=== PATIENT | female | born 1970 | race Caucasian/White ===

== ENCOUNTER 2016-11-05 14:10 | Emergency (ER) | payer BC ==
[2016-11-05] MEDS ORDERED: Aspirin 81 MG Tab.Chew ONE (14:28)
[2016-11-05] MEDS ORDERED: Nitroglycerin 0.4 MG Tab.SL ONE (14:28)
[2016-11-05] MEDS ORDERED: Aspirin 81 MG Tab.Chew PO SCH (14:30)
[2016-11-05] MEDS ORDERED: Nitroglycerin 0.4 MG Tab.SL SL ONE ×2 (14:30→14:51)
[2016-11-05] MEDS ORDERED: Sodium Chloride 0.9% 10 ML Syringe FLUSH PRN (14:51)
[2016-11-05 18:03] VITALS: BP 112/73
--- NOTE | 2016-11-05 18:41 | EDM.PDOC ---
ED HPI GENERAL MEDICAL PROBLEM - General Chief Complaint: Chest Pain Stated Complaint: FAST HEART RATE Time Seen by Provider: 11/05/16 14:49 Source of Information: Reports: Patient History Limitations: Reports: No Limitations - History of Present Illness INITIAL COMMENTS - FREE TEXT/NARRATIVE: This patient comes in with complaints of chest pain. It's been going on about an hour and a half. Described as a pain and pressure sensation. She also complained of a racing heart. She's had nausea on and off for the last couple of days. She has a history of reflux but had a Reagan procedure a couple of years ago which seemed to take care of that. She hasn't tried any antacids. Chest Pain Score (Numeric/FACES): 4 - Related Data Allergies Allergy/AdvReac Type Severity Reaction Status Date / Time morphine Allergy itch Uncoded 03/30/15 07:58 Home Meds: Home Meds Acetaminophen [Tylenol Jr. [place]] 640 mg PO Q4H PRN #100 tab.dis 03/27/15 [ Rx] Magnesium Hydroxide [Milk of Magnesia] 30 ml PO DAILY PRN #2 ml 03/27/15 [Rx] Ondansetron [Zofran ODT] 4 mg PO Q6H PRN #30 tab.dis 03/27/15 [Rx] Past Medical History - Past Health History Medical/Surgical History: Denies Medical/Surgical History Other Gastrointestinal History: lap niseen [employer] History: Reports: - Past Surgical History Female Surgical History: Reports: Section Social & Family History - Tobacco Use Smoking Status *Q: Never Smoker Second Hand Smoke Exposure: No - Caffeine Use Caffeine Use: Reports: None - Alcohol Use Days Per Week of Alcohol Use: 2 Number of Drinks Per Day: 1 Total Drinks Per Week: 2 - Recreational Drug Use Recreational Drug Use: No ED ROS GENERAL - Review of Systems Review Of Systems: ROS reveals no pertinent complaints other than HPI. ED EXAM, GENERAL - Physical Exam Exam: See Below Exam Limited By: No Limitations General Appearance: Alert, WD/WN, Mild Distress Eye Exam: Bilateral Eye: Normal Inspection Throat/Mouth: Normal Oropharynx Respiratory/Chest: Lungs Clear, Chest Non-Tender Cardiovascular: Normal Peripheral Pulses, Regular Rate, Rhythm GI/Abdominal: Soft, Non-Tender Extremities: Normal Inspection Neurological: Alert, Oriented Psychiatric: Normal Affect Skin Exam: Warm, Dry Course - Vital Signs Last Recorded V/S: Last Vital Signs Temp 37.1 C 11/05/16 14:33 Pulse 66 11/05/16 18:02 Resp 18 11/05/16 18:02 BP 112/73 11/05/16 18:02 Pulse Ox 99 11/05/16 18:02 - Orders/Labs/Meds Orders: Active Orders 24 hr Category Date Time Status EKG Documentation Completion [RC] ASDIRECTED Care 11/05/16 14:51 Active EKG Documentation Completion [RC] ASDIRECTED Care 11/05/16 16:46 Active Chest 1V Frontal [CR] Urgent Exams 11/05/16 14:50 Taken Aspirin Med 11/05/16 14:30 Active 324 mg PO BEDTIME Sodium Chloride 0.9% [Saline Flush] Med 11/05/16 14:51 Active 10 ml FLUSH ASDIRECTED PRN Saline Lock Insert [OM.PC] Urgent Oth 11/05/16 14:50 Ordered EKG 12 Lead [EK] Urgent Ther 11/05/16 14:50 Ordered EKG 12 Lead [EK] Urgent Ther 11/05/16 16:46 Ordered Medication Orders Aspirin (Aspirin) 324 mg PO BEDTIME DEEPTHI Last Admin: 11/05/16 14:30 Dose: 324 mg Sodium Chloride (Saline Flush) 10 ml FLUSH ASDIRECTED PRN PRN Reason: Keep Vein Open Last Admin: 11/05/16 15:00 Dose: 10 ml Labs: Laboratory Tests 11/05/16 11/05/16 11/05/16 Range/Units 14:25 14:25 14:25 WBC 8.0 (4.5-11.0) K/uL RBC 4.21 (3.30-5.50) M/uL Hgb 14.2 (12.0-15.0) g/dL Hct 41.3 (36.0-48.0) % MCV 98 (80-98) fL MCH 34 H (27-31) pg MCHC 34 (32-36) % Plt Count 228 (150-400) K/uL Neut % (Auto) 73 H (36-66) % Lymph % (Auto) 18 L (24-44) % [place] % (Auto) 8 H (2-6) % Eos % (Auto) 1 L (2-4) % Baso % (Auto) 0 (0-1) % PT 10.3 (9.5-12.0) sec INR 0.96 (0.80-1.20) APTT 24.4 L (27.0-36.0) sec Sodium 138 L (140-148) mmol/L Potassium 3.9 (3.6-5.2) mmol/L Chloride 103 (100-108) mmol/L Carbon Dioxide 21 (21-32) mmol/L Anion Gap 17.9 H (5.0-14.0) mmol/L BUN 12 (7-18) mg/dL Creatinine 0.8 (0.6-1.0) mg/dL Est Cr Clr Drug Dosing 70.98 mL/min Estimated GFR (MDRD) > 60 (>60) Glucose 121 H (74-106) mg/dL Calcium 9.0 (8.5-10.1) mg/dL Total Bilirubin 0.9 D (0.2-1.0) mg/dL AST 17 (15-37) U/L ALT 16 (12-78) U/L Alkaline Phosphatase 53 (46-116) U/L Troponin I < 0.017 (0.000-0.056) ng/mL Total Protein 7.6 (6.4-8.2) g/dL Albumin 3.7 (3.4-5.0) g/dL Globulin 3.9 H (2.3-3.5) g/dL Albumin/Globulin Ratio 1.0 L (1.2-2.2) 11/05/16 Range/Units 16:50 WBC (4.5-11.0) K/uL RBC (3.30-5.50) M/uL Hgb (12.0-15.0) g/dL Hct (36.0-48.0) % MCV (80-98) fL MCH (27-31) pg MCHC (32-36) % Plt Count (150-400) K/uL Neut % (Auto) (36-66) % Lymph % (Auto) (24-44) % [place] % (Auto) (2-6) % Eos % (Auto) (2-4) % Baso % (Auto) (0-1) % PT (9.5-12.0) sec INR (0.80-1.20) APTT (27.0-36.0) sec Sodium (140-148) mmol/L Potassium (3.6-5.2) mmol/L Chloride (100-108) mmol/L Carbon Dioxide (21-32) mmol/L Anion Gap (5.0-14.0) mmol/L BUN (7-18) mg/dL Creatinine (0.6-1.0) mg/dL Est Cr Clr Drug Dosing mL/min Estimated GFR (MDRD) (>60) Glucose (74-106) mg/dL Calcium (8.5-10.1) mg/dL Total Bilirubin (0.2-1.0) mg/dL AST (15-37) U/L ALT (12-78) U/L Alkaline Phosphatase (46-116) U/L Troponin I < 0.017 (0.000-0.056) ng/mL Total Protein (6.4-8.2) g/dL Albumin (3.4-5.0) g/dL Globulin (2.3-3.5) g/dL Albumin/Globulin Ratio (1.2-2.2) Meds: Medications Generic Name Dose Route Start Last Admin Trade Name Freq PRN Reason Stop Dose Admin Aspirin 324 mg 11/05/16 14:30 11/05/16 14:30 Aspirin PO 324 mg BEDTIME DEEPTHI Administration Sodium Chloride 10 ml 11/05/16 14:51 11/05/16 15:00 Saline Flush FLUSH 10 ml ASDIRECTED PRN Administration Keep Vein Open Discontinued Medications Generic Name Dose Route Start Last Admin Trade Name Freq PRN Reason Stop Dose Admin Aspirin Confirm 11/05/16 14:28 11/05/16 15:02 Aspirin Administered 11/05/16 14:29 Not Given Dose 324 mg .ROUTE .STK-MED ONE Nitroglycerin Confirm 11/05/16 14:28 11/05/16 15:03 Nitrostat Administered 11/05/16 14:29 Not Given Dose 0.4 mg .ROUTE .STK-MED ONE Nitroglycerin 0.4 mg 11/05/16 14:51 11/05/16 14:41 Nitrostat SL 11/05/16 14:52 0.4 mg ONETIME ONE Administration Nitroglycerin 0.4 mg 11/05/16 14:30 07/06/17 14:30 Nitrostat SL 11/05/16 14:31 0.4 mg ONETIME ONE Administration - Re-Assessments/Exams Free Text/Narrative Re-Assessment/Exam: 11/05/16 18:35 Initial EKG shows sinus tachycardia at 100 bpm there is abnormal R wave progression with late transition. QRS complexes and 23 and aVF technically are not Q waves. This was seen in lead 3 and 29 June 2013 she did have upright R waves in 2 and aVF at that time which are missing today. A second EKG done about 3 hours later was identical to the first and again technically I don't think these are Q waves. The second EKG lead V3 appears different from the first 1 and that is a problem with lead placement. First EKG at 1423 I placed lead V3 in the correct position myself and I assume the second EKG V3 was placed in the typical midsternal position. Treatment course: The patient received aspirin 324 mg Treatment course: The patient received aspirin 324 mg orally. She received 1 sublingual nitroglycerin which seemed to reduce her pain about 50%. She was examined afterwards still had just very slight pain since she received a second sublingual nitroglycerin which completely relieved her pain. She's remained pain -free since then. 2 troponins spaced greater than 2 hours apart are negative. Departure - Departure Time of Disposition: 18:41 Disposition: Home, Self-Care 01 Condition: Fair Clinical Impression: Chest pain Forms: ED Department Discharge Additional Instructions: Continue to take aspirin 81 mg daily. You should also take Prilosec or omeprazole 20 mg daily. Return to the hospital tomorrow for the stress test as arranged. He will need to follow-up with your family doctor afterwards. Return to the ER at any time if you have more pain - My Orders Last 24 Hours: My Active Orders 11/05/16 14:30 Aspirin 324 mg PO BEDTIME 11/05/16 14:50 Chest 1V Frontal [CR] Urgent Saline Lock Insert [OM.PC] Urgent EKG 12 Lead [EK] Urgent 11/05/16 14:51 EKG Documentation Completion [RC] ASDIRECTED Sodium Chloride 0.9% [Saline Flush] 10 ml FLUSH ASDIRECTED PRN 11/05/16 16:46 EKG Documentation Completion [RC] ASDIRECTED EKG 12 Lead [EK] Urgent - Assessment/Plan Last 24 Hours: My Active Orders 11/05/16 14:30 Aspirin 324 mg PO BEDTIME 11/05/16 14:50 Chest 1V Frontal [CR] Urgent Saline Lock Insert [OM.PC] Urgent EKG 12 Lead [EK] Urgent 11/05/16 14:51 EKG Documentation Completion [RC] ASDIRECTED Sodium Chloride 0.9% [Saline Flush] 10 ml FLUSH ASDIRECTED PRN 11/05/16 16:46 EKG Documentation Completion [RC] ASDIRECTED EKG 12 Lead [EK] Urgent
--- NOTE | 2016-11-06 09:27 | CR ---
Heart size upper limits of normal. No focal consolidation. Pulmonary vasculature within normal limit s.
== END 2016-11-05 19:13 | disposition home or self-care (01) ==
LOC: JP.ED 14:10
DX: R07.9 Chest pain, unspecified (principal); Z88.5 Allergy status to narcotic agent; Z79.899 Other long term (current) drug therapy
CPT/HCPCS: 36415; 71010; 80053; 84484; 85025; 85610; 85730; 93005; 99285; A9270; J7050

== ENCOUNTER 2017-06-10 21:39 | Emergency (ER) | payer SELFPAY ==
[2017-06-10 21:58] VITALS: BP 138/91
[2017-06-10] MEDS ORDERED: Ibuprofen 600 MG Tab PO ONE (22:17)
--- NOTE | 2017-06-10 22:24 | EDM.PDOC ---
ED HPI GENERAL MEDICAL PROBLEM - General Chief Complaint: Lower Extremity Injury/Pain Stated Complaint: HURT ANKLE Time Seen by Provider: 06/10/17 22:10 Source of Information: Reports: Patient History Limitations: Reports: No Limitations - History of Present Illness INITIAL COMMENTS - FREE TEXT/NARRATIVE: 46 yo female here with L foot and ankle pain after falling getting off a bus about 3 pm today. Has not taken any medication or iced the injury. Onset: Today Onset Date: 06/10/17 Onset Time: 15:00 Duration: Hour(s): Location: Reports: Lower Extremity, Left Quality: Reports: Ache Severity: Moderate Improves with: Reports: Immobilization, Rest Worsens with: Reports: Movement Context: Reports: Trauma Associated Symptoms: Reports: No Other Symptoms Treatments [employer]: Reports: Other (see below) (none) left ankle Pain Score (Numeric/FACES): 10 - Related Data Allergies Allergy/AdvReac Type Severity Reaction Status Date / Time morphine Allergy itch Uncoded 06/10/17 22:00 Home Meds: Home Meds Acetaminophen [Tylenol JrFidencio Jiangawayarmida] 640 mg PO Q4H PRN #100 tab.dis 03/27/15 [ Rx] Ondansetron [Zofran ODT] 4 mg PO Q6H PRN #30 tab.dis 03/27/15 [Rx] ALPRAZolam [Alprazolam] 0.5 mg PO ASDIRECTED PRN 06/10/17 [History] Venlafaxine HCl [Venlafaxine ER] 37.5 mg PO DAILY 06/10/17 [History] Past Medical History - Past Health History Medical/Surgical History: Denies Medical/Surgical History Cardiovascular History: Reports: Angina Gastrointestinal History: Reports: GERD Other Gastrointestinal History: lap niseen [employer] History: Reports: Psychiatric History: Reports: Anxiety Dermatologic History: Reports: Eczema - Infectious Disease History Infectious Disease History: Reports: Chicken Pox - Past Surgical History GI Surgical History: Reports: Reagan Fundoplication Female Surgical History: Reports: Section Social & Family History - Tobacco Use Smoking Status *Q: Never Smoker Second Hand Smoke Exposure: No - Caffeine Use Caffeine Use: Reports: None - Alcohol Use Days Per Week of Alcohol Use: 2 Number of Drinks Per Day: 1 Total Drinks Per Week: 2 - Recreational Drug Use Recreational Drug Use: No Review of Systems - Review of Systems Review Of Systems: See Below Constitutional: Reports: No Symptoms Musculoskeletal: Reports: Foot Pain (Left), Joint Pain (L ankle). Denies: Joint Swelling Skin: Reports: No Symptoms Neurological: Reports: No Symptoms ED EXAM, GENERAL - Physical Exam Exam: See Below Exam Limited By: No Limitations General Appearance: Alert, WD/WN, No Apparent Distress Extremities: Normal Inspection, No Pedal Edema, Limited Range of Motion, Other ( Diffuse L ankle and foot pain without ecchymosis or significant swelling. No deformity.). No: Non-Tender, Redness Neurological: Alert, Oriented, CN II-XII Intact, Normal Cognition, No Motor/ Sensory Deficits Psychiatric: Normal Affect, Normal Mood Skin Exam: Warm, Dry, Intact, Normal Color, No Rash Course - Vital Signs Text/Narrative:: AMY wrap applied per nursing Last Recorded V/S: Last Vital Signs Temp 36.6 C 06/10/17 22:13 Pulse 78 06/10/17 22:13 Resp 14 06/10/17 22:13 BP 138/91 H 06/10/17 22:13 Pulse Ox 99 06/10/17 22:13 - Orders/Labs/Meds Orders: Active Orders 24 hr Category Date Time Status Ankle Min 3V Lt [CR] Stat Exams 06/10/17 22:18 Taken Foot Comp Min 3V Lt [CR] Stat Exams 06/10/17 22:18 Taken Meds: Medications Discontinued Medications Generic Name Dose Route Start Last Admin Trade Name Freq PRN Reason Stop Dose Admin Ibuprofen 600 mg 06/10/17 22:17 06/10/17 22:23 Motrin PO 06/10/17 22:18 600 mg ONETIME ONE Administration - Radiology Interpretation Free Text/Narrative:: L foot X-ray-neg L ankle X-ray-neg Departure - Departure Time of Disposition: 22:45 Disposition: Home, Self-Care 01 Condition: Good Clinical Impression: Foot sprain Qualifiers: Encounter type: initial encounter Laterality: left Qualified Code(s): S93.602A - Unspecified sprain of left foot, initial encounter - Discharge Information Referrals: Froilan Olmstead MD [Primary Care Provider] - Forms: ED Department Discharge - My Orders Last 24 Hours: My Active Orders 06/10/17 22:18 Ankle Min 3V Lt [CR] Stat Foot Comp Min 3V Lt [CR] Stat - Assessment/Plan Last 24 Hours: My Active Orders 06/10/17 22:18 Ankle Min 3V Lt [CR] Stat Foot Comp Min 3V Lt [CR] Stat
--- NOTE | 2017-06-11 09:02 | CR ---
No fracture or dislocation.
--- NOTE | 2017-06-11 09:13 | CR ---
Shortened fourth metacarpal. Hypertrophic change TMT joints. No fracture.
== END 2017-06-10 23:03 | disposition home or self-care (01) ==
LOC: JP.ED 21:39
DX: S93.602A Unspecified sprain of left foot, initial encounter (principal); F41.9 Anxiety disorder, unspecified; Z79.899 Other long term (current) drug therapy; Z88.5 Allergy status to narcotic agent; W17.89XA Other fall from one level to another, initial encounter
CPT/HCPCS: 73610; 73630; 99284; A9270; 99283

== ENCOUNTER 2022-11-29 17:08 | Emergency (ER) | payer BC ==
[2022-11-29] MEDS ORDERED: Sodium Chloride 0.9% 10 ML Syringe FLUSH PRN (17:40)
[2022-11-29] MEDS ORDERED: Adenosine 6 MG/2 ML SDV IVPUSH ONE ×2 (17:41)
[2022-11-29] MEDS ORDERED: Sodium Chloride 0.9% 1,000 ML IV SCH (17:45)
[2022-11-29 17:49] LABS: BASOPHILS ABSOLUTE AUTO 0.04 K/uL (0.00-0.10); BASOPHILS PERCENT AUTO 0.4 % (0.1-1.3); EOSINOPHILS ABSOLUTE AUTO 0.04 K/uL (0.00-0.40); EOSINOPHILS PERCENT AUTO 0.4 % (0.0-5.4); HEMATOCRIT 40.2 % (34.3-46.0); HEMOGLOBIN 13.9 g/dL (11.2-15.5); IMMATURE GRAN PERCENT AUTO 0.2 % (0.0-0.7); LYMPHOCYTES ABSOLUTE AUTO 1.73 K/uL (0.8-3.3); LYMPHOCYTES PERCENT AUTO 19.3 % (11.4-47.7); MEAN CORPUSCULAR HEMOGLOBIN 34.8 pg (31.6-35.5); MEAN CORPUSCULAR HGB CONC 34.6 g/dL (31.6-35.5); MEAN CORPUSCULAR VOLUME 100.5 fL (81.4-99.0); MONOCYTES ABSOLUTE AUTO 0.79 K/uL (0.20-0.90); MONOCYTES PERCENT AUTO 8.8 % (3.3-12.6); NEUTROPHILS ABSOLUTE AUTO 6.34 K/uL (1.0-7.6); NEUTROPHILS PERCENT AUTO 70.9 % (40.0-78.1); PLATELET COUNT,PLT 215 K/uL (130-375)
[2022-11-29 17:53] LABS: IMMATURE GRAN ABSOLUTE AUTO 0.02 K/uL (0.00-0.23)
[2022-11-29 18:14] LABS: ALANINE AMINOTRANSFERASE,ALT 29 U/L (12-78); ALBUMIN 3.6 g/dL (3.4-5.0); ALKALINE PHOSPHATASE 65 U/L (46-116); ASPARTATE AMNIOTRANSFERASE,AST 22 U/L (15-37); BILIRUBIN TOTAL 0.7 mg/dL (0.2-1.0); BLOOD UREA NITROGEN,BUN 15 mg/dL (7-18); CALCIUM 9.2 mg/dL (8.5-10.1); CARBON DIOXIDE,CO2 26 mmol/L (21-32); CHLORIDE,CL 104 mmol/L (100-108); CREATININE 0.8 mg/dL (0.6-1.0); EST CRCL DRUG DOSING (CG) 69.59 mL/min; ESTIMATED GFR 90 mL/min (>60); GLUCOSE RANDOM 107 mg/dL (74-106); POTASSIUM,K 4.4 mmol/L (3.6-5.2); PROTEIN TOTAL,TP 7.1 g/dL (6.4-8.2); SODIUM,NA 140 mmol/L (140-148); TROPONIN I HIGH SENSITIVITY 51.3 pg/mL (<=60.3)
[2022-11-29 18:22] LABS: TSH ULTRASENSITIVE 1.396 uIU/mL (0.358-3.740)
[2022-11-29] MEDS ORDERED: Metoprolol Tartrate 25 MG Tab PO ONE (18:49)
[2022-11-29 18:56] VITALS: BP 93/68; PULSE 76
== END 2022-11-29 19:00 | disposition home or self-care (01) ==
LOC: JP.ED 17:08
DX: I47.1 Supraventricular tachycardia (principal); Z88.5 Allergy status to narcotic agent; Z98.890 Other specified postprocedural states
CPT/HCPCS: 36415; 80053; 83605; 83735; 84443; 84484; 85025; 93005; 96374; 99285; A9270; J0153; J7030

== ENCOUNTER 2022-12-01 09:34 | Emergency (ER) | payer BC ==
[2022-12-01 10:00] LABS: HEMATOCRIT 40.8 % (34.3-46.0); HEMOGLOBIN 13.9 g/dL (11.2-15.5); MEAN CORPUSCULAR HEMOGLOBIN 34.4 pg (31.6-35.5); MEAN CORPUSCULAR HGB CONC 34.1 g/dL (31.6-35.5); RED BLOOD CELL COUNT 4.04 M/uL (3.77-5.24); WHITE BLOOD CELL COUNT,WBC 7.2 K/uL (3.2-11.0)
[2022-12-01] MEDS ORDERED: Nitroglycerin 0.4 MG Tab.SL SL PRN (10:21)
[2022-12-01] MEDS ORDERED: Aspirin 81 MG Tab.Chew PO ONE (10:21)
[2022-12-01 10:29] LABS: A/G RATIO 1.1 (1.2-2.2); ALANINE AMINOTRANSFERASE,ALT 29 U/L (12-78); ALBUMIN 3.7 g/dL (3.4-5.0); ALKALINE PHOSPHATASE 58 U/L (46-116); ANION GAP 9.2 mmol/L (5.0-14.0); ASPARTATE AMNIOTRANSFERASE,AST 21 U/L (15-37); BILIRUBIN TOTAL 0.7 mg/dL (0.2-1.0); BLOOD UREA NITROGEN,BUN 13 mg/dL (7-18); CALCIUM 9.1 mg/dL (8.5-10.1); CARBON DIOXIDE,CO2 27 mmol/L (21-32); CHLORIDE,CL 105 mmol/L (100-108); CREATININE 0.8 mg/dL (0.6-1.0); EST CRCL DRUG DOSING (CG) 69.59 mL/min; ESTIMATED GFR 90 mL/min (>60); GLUCOSE RANDOM 98 mg/dL (74-106); POTASSIUM,K 3.9 mmol/L (3.6-5.2); PRO B-TYPE NATRIUR PEPT,BNPPRO 321 pg/mL (5-125); PROTEIN TOTAL,TP 7.2 g/dL (6.4-8.2); SODIUM,NA 141 mmol/L (140-148)
[2022-12-01] MEDS ORDERED: Sodium Chloride 0.9% 1,000 ML IV SCH (10:30)
[2022-12-01 10:55] LABS: APPEARANCE,URINE CLEAR (CLEAR); BILIRUBIN,URINE NEGATIVE (NEGATIVE); COLOR,URINE YELLOW (YELLOW); GLUCOSE,URINE NEGATIVE (NEGATIVE); KETONES,URINE 15 mg/dL (NEGATIVE); LEUKOCYTE ESTERASE,URINE NEGATIVE (NEGATIVE); NITRITE,URINE NEGATIVE (NEGATIVE); OCCULT BLOOD,URINE NEGATIVE (NEGATIVE); PROTEIN,URINE NEGATIVE (NEGATIVE); UROBILINOGEN,URINE 0.2 EU/dL (0.2-1.0)
[2022-12-01 11:00] LABS: AMORPHOUS SEDIMENT,URINE NOT SEEN; AMPHETAMINES SCREEN, URINE NEGATIVE (NEGATIVE); BACTERIA,URINE MODERATE; BARBITURATE SCREEN,URINE NEGATIVE (NEGATIVE); BENZODIAZEPINES SCREEN,URINE NEGATIVE (NEGATIVE); EPITHELIAL CELLS,URINE RARE; METHADONE SCREEN, URINE NEGATIVE (NEGATIVE); METHAMPHETAMINES SCREEN, URINE NEGATIVE (NEGATIVE); MUCUS,URINE NOT SEEN; OXYCODONE SCREEN,URINE NEGATIVE (NEGATIVE); PROPOXYPHENE SCREEN,URINE NEGATIVE (NEGATIVE); RBC,URINE NOT SEEN (0-5); THC SCREEN,URINE 50 NG/ML NEGATIVE (NEGATIVE); WBC,URINE 0-5 (0-5)
[2022-12-01 13:05] VITALS: BP 118/84; PULSE 69
== END 2022-12-01 13:41 | disposition home or self-care (01) ==
LOC: JP.ED 09:34
DX: R06.09 Other forms of dyspnea (principal); Z88.5 Allergy status to narcotic agent; Z86.16 Personal history of COVID-19
CPT/HCPCS: 36415; 71046; 80053; 80305; 81001; 83605; 83880; 84484; 85027; 85379; 93005; 99285; A9270; J7030

== ENCOUNTER 2024-04-30 17:09 | Emergency (ER) | payer BC ==
[2024-04-30 17:21] VITALS: BP 125/86; PULSE 89
[2024-04-30 18:12] LABS: BASOPHILS ABSOLUTE AUTO 0.02 K/uL (0.00-0.10); BASOPHILS PERCENT AUTO 0.2 % (0.1-1.3); EOSINOPHILS ABSOLUTE AUTO 0.03 K/uL (0.00-0.40); EOSINOPHILS PERCENT AUTO 0.4 % (0.0-5.4); HEMATOCRIT 38.5 % (34.3-46.0); HEMOGLOBIN 13.2 g/dL (11.2-15.5); IMMATURE GRAN ABSOLUTE AUTO 0.02 K/uL (0.00-0.23); IMMATURE GRAN PERCENT AUTO 0.2 % (0.0-0.7); LYMPHOCYTES ABSOLUTE AUTO 0.89 K/uL (0.8-3.3); LYMPHOCYTES PERCENT AUTO 10.9 % (11.4-47.7); MEAN CORPUSCULAR HEMOGLOBIN 33.8 pg (31.6-35.5); MEAN CORPUSCULAR HGB CONC 34.3 g/dL (31.6-35.5); MEAN CORPUSCULAR VOLUME 98.5 fL (81.4-99.0); MONOCYTES ABSOLUTE AUTO 0.64 K/uL (0.20-0.90); MONOCYTES PERCENT AUTO 7.8 % (3.3-12.6); NEUTROPHILS ABSOLUTE AUTO 6.58 K/uL (1.0-7.6); NEUTROPHILS PERCENT AUTO 80.5 % (40.0-78.1); PLATELET COUNT,PLT 220 K/uL (130-375); RED BLOOD CELL COUNT 3.91 M/uL (3.77-5.24); WHITE BLOOD CELL COUNT,WBC 8.2 K/uL (3.2-11.0)
[2024-04-30] MEDS: Azithromycin 250 MG Tab PO ONE (18:49)
== END 2024-04-30 18:50 | disposition home or self-care (01) ==
LOC: JP.ED 17:09
DX: J18.9 Pneumonia, unspecified organism (principal); K59.01 Slow transit constipation; Z86.16 Personal history of COVID-19; Z79.51 Long term (current) use of inhaled steroids; Z88.5 Allergy status to narcotic agent
CPT/HCPCS: 36415; 71046; 74019; 85025; 87428; 99285; A9270